=== PATIENT | male | born 1950 | race Caucasian/White ===

== ENCOUNTER 2025-05-28 14:54 | Observation (INO) | payer OTHER, SELFPAY ==
[2025-05-28] VITALS (24 sets, daily range): BP systolic 121–161; BP diastolic 74–106; PULSE 72–102; TEMP 36.6–36.8; O2SAT 89–97; BMI 39.5
--- NOTE | 2025-05-28 15:17 | ECG_ITS ---
The [facility] Test Date: 2025-05-28 Pat Name: SHAKIRA PASCAL Department: Room: - Gender: Male [employer]: : 1950 Requested By: Griffin Macario Order Number: [id number] Dong MD: RENÉ TARIQ M.D. Measurements Intervals [place] Rate: 81 P: 60 CO: 210 QRS: -75 QRSD: 134 T: 66 QT: 408 QTc: 446 Interpretive Statements 1100 Sinus rhythm 2231 First degree AV block 2450 Right bundle branch block 3114 Cannot rule out anterior myocardial infarction, age undetermined 7200 Abnormal left axis deviation 9150 abnormal ECG No previous ECG available for comparison Electronically Signed On 05-28-2025 18:04:07 EDT by RENÉ TARIQ M.D.
--- NOTE | 2025-05-28 15:32 | PC.NURSE ---
pt reports when he puts head down and then lifts head the dizziness increases. states this makes him nauseated.
[2025-05-28 15:46] LABS: Hematocrit 51.5 % (42.0-54.0); Hemoglobin 16.9 g/dL (14.0-18.0); Immature Granulocytes Abs Auto 0.03 10^3/uL (0.00-0.03); Immature Granulocytes Pct Auto 0.3 % (0.0-0.5); Lymphocytes Absolute Auto 1.9 10^3/uL (1.2-3.8); Mean Corpuscular HGB Conc 32.8 g/dL (29.9-35.2); Mean Corpuscular Hemoglobin 30.2 pg (25.9-34.0); Mean Corpuscular Volume 92.1 fL (80.0-94.0); Platelet Count 166 10^3/uL (150-450); Red Blood Count 5.59 10^6/uL (4.70-6.10); White Blood Count 9.0 10^3/uL (4.0-11.0)
--- NOTE | 2025-05-28 15:47 | CT_ITS ---
The [address] [address] Patient Name: SHAKIRA PASCAL MRN: [facility]:[id number] date: 1950 Sex: M Assigned Patient Location: ED.MAIN Current Patient Location: ED.MAIN Accession/Order Number: [id number] Exam Date: 05/28/2025 15:42 Report Date: 05/28/2025 16:06 At the request of: ALETA NORTON Procedure: CT cervical spine wo con CLINICAL DATA: Dizziness and visual changes. Neck and shoulder pain with weakness. CT BRAIN WITHOUT CONTRAST: COMPARISON: None TECHNIQUE: Contiguous axial unenhanced images were obtained through the brain. This CT exam was performed using one or more following dose reduction techniques: Automated exposure control, adjustment of the mA and/or kV according to patient size, or use of iterative reconstruction technique. FINDINGS: There is generalized atrophy. The ventricles are normal in size and position. Minor microvascular changes are noted. There are no additional areas of abnormal attenuation. There is no hemorrhage, mass effect or extra-axial collections. There is suspected empty sella. Bilateral ethmoid mucosal thickening is present. There is also soft tissue density within the nasal passages where polyposis is not excluded. There is slight nasal septal deviation to the left. The mastoid air cells are under developed though appear clear. There is carotid siphon plaque. No orbital asymmetries are noted. CT/CT head/brain wo con IMPRESSION: ATROPHY AND MINOR MICROVASCULAR CHANGES. SINUS DISEASE AND POSSIBLE NASAL POLYPOSIS. NO ACUTE INTRACRANIAL ABNORMALITY. CT CERVICAL SPINE WITHOUT CONTRAST WITH 3D RECONSTRUCTIONS: COMPARISON: None TECHNIQUE: Spiral axial unenhanced images were obtained through the cervical spine. Sagittal, coronal and 3D volume-rendered reconstructions were also reviewed. This CT exam was performed using one or more following dose reduction techniques: Automated exposure control, adjustment of the mA and/or kV according to patient size, or use of iterative reconstruction technique. FINDINGS: There is straightening of the normal cervical lordosis. Alignment is maintained in the sagittal plane. No fractures are identified. There is slight disc space narrowing at C6-7. There is endplate spurring at the lower spine. The atlantoaxial relationship is maintained. No prevertebral soft tissue swelling is seen. There are some shotty cervical lymph nodes. The upper imaged lungs show no contributory findings. IMPRESSION: STRAIGHTENING OF THE NORMAL CERVICAL LORDOSIS. MINOR DEGENERATIVE CHANGES, PREDOMINANTLY DISTALLY. NO ACUTE BONY FINDINGS. Impression dictated by: Debra Moseley M.D. 05/28/2025 4:06 PM Dictation Location: [place] [address] Electronically authenticated by: [id number] Y Date: 05/28/2025 16:06
--- NOTE | 2025-05-28 15:47 | CT_ITS ---
The [address] [address] Patient Name: SHAKIRA PASCAL MRN: [facility]:[id number] date: 1950 Sex: M Assigned Patient Location: ED.MAIN Current Patient Location: ED.MAIN Accession/Order Number: [id number] Exam Date: 05/28/2025 15:42 Report Date: 05/28/2025 16:06 At the request of: ALETA NORTON Procedure: CT cervical spine wo con CLINICAL DATA: Dizziness and visual changes. Neck and shoulder pain with weakness. CT BRAIN WITHOUT CONTRAST: COMPARISON: None TECHNIQUE: Contiguous axial unenhanced images were obtained through the brain. This CT exam was performed using one or more following dose reduction techniques: Automated exposure control, adjustment of the mA and/or kV according to patient size, or use of iterative reconstruction technique. FINDINGS: There is generalized atrophy. The ventricles are normal in size and position. Minor microvascular changes are noted. There are no additional areas of abnormal attenuation. There is no hemorrhage, mass effect or extra-axial collections. There is suspected empty sella. Bilateral ethmoid mucosal thickening is present. There is also soft tissue density within the nasal passages where polyposis is not excluded. There is slight nasal septal deviation to the left. The mastoid air cells are under developed though appear clear. There is carotid siphon plaque. No orbital asymmetries are noted. CT/CT cervical spine wo con IMPRESSION: ATROPHY AND MINOR MICROVASCULAR CHANGES. SINUS DISEASE AND POSSIBLE NASAL POLYPOSIS. NO ACUTE INTRACRANIAL ABNORMALITY. CT CERVICAL SPINE WITHOUT CONTRAST WITH 3D RECONSTRUCTIONS: COMPARISON: None TECHNIQUE: Spiral axial unenhanced images were obtained through the cervical spine. Sagittal, coronal and 3D volume-rendered reconstructions were also reviewed. This CT exam was performed using one or more following dose reduction techniques: Automated exposure control, adjustment of the mA and/or kV according to patient size, or use of iterative reconstruction technique. FINDINGS: There is straightening of the normal cervical lordosis. Alignment is maintained in the sagittal plane. No fractures are identified. There is slight disc space narrowing at C6-7. There is endplate spurring at the lower spine. The atlantoaxial relationship is maintained. No prevertebral soft tissue swelling is seen. There are some shotty cervical lymph nodes. The upper imaged lungs show no contributory findings. IMPRESSION: STRAIGHTENING OF THE NORMAL CERVICAL LORDOSIS. MINOR DEGENERATIVE CHANGES, PREDOMINANTLY DISTALLY. NO ACUTE BONY FINDINGS. Impression dictated by: Debra Moseley M.D. 05/28/2025 4:06 PM Dictation Location: [place] [address] Electronically authenticated by: [id number] Y Date: 05/28/2025 16:06
[2025-05-28 15:49] LABS: Anion Gap 16.8; Blood Urea Nitrogen 35.0 mg/dL (7.0-18.0); Calcium 9.6 mg/dL (8.5-10.1); Carbon Dioxide 25.2 mmol/L (21.0-32.0); Chloride 102 mmol/L (98-107); Estimated GFR (African America 30 (>=60 mL/min/1.73m^2); Estimated GFR (Non-African Ame 25 (>=60 mL/min/1.73m^2); Glucose 159 mg/dL (74-106); Potassium 4.0 mmol/L (3.5-5.1); Sodium 140 mmol/L (136-145)
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
--- NOTE | 2025-05-28 17:23 | US_ITS ---
The [address] [address] Patient Name: SHAKIRA PASCAL MRN: [id number] date: 1950 Sex: M Assigned Patient Location: ED.MAIN Current Patient Location: ED.MAIN Accession/Order Number: [id number] Exam Date: 05/28/2025 18:20 Report Date: 05/28/2025 19:56 At the request of: PHAM FOSTER MD Procedure: US renal BI BILATERAL RENAL AND BLADDER ULTRASOUND CLINICAL HISTORY: SUZANNE COMPARISON: None Estimation of renal size is approximately 10.4 x 5.4 x 6.9 cm on the right and 9.4 x 6.0 x 7.9 cm on the left. Multiple echogenic foci on the right up to 7 x 6 x 7 mm in size superiorly superior pole cyst the right 5.2 cm in size. On the left, there is cortical thinning 5 mm. Evidence of of acute pelvic calyceal dilatation. Multiple stones largest 1.3 x 1.4 x 2.6 cm in size. The urinary bladder is partially distended with a volume of 348 ml. No shadowing stone or focal lesion. US/US renal BI IMPRESSION: BILATERAL renal calculi. Bilateral renal cortical thinning Left-sided pelvicalyceal dilatation Impression dictated by: Moe Boucher M.D. 05/28/2025 7:56 PM Dictation Location: [place] [address] Electronically authenticated by: [id number] Y Date: 05/28/2025 19:56
[2025-05-28 17:49] LABS: Cholesterol 111 mg/dL (<=200); HDL Cholesterol 30 mg/dL (40-60); Triglycerides 177 mg/dL (<=150); VLDL CHOLESTEROL 35.4 mg/dL
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
[2025-05-28] MEDS: ASPIRIN 81 MG TAB.CHEW 324 MG PO (18:45)
[2025-05-28] MEDS: CITRIC ACID/SODIUM CITRATE 30 ML SOLUTION ORACIT SHOHL'S SOLN 5 ML PO (21:17)
[2025-05-28] MEDS: CYCLOBENZAPRINE HCL 10 MG TABLET 5 MG PO (21:18)
[2025-05-28] MEDS: DICLOFENAC SODIUM 1% 100 GM TUBE TOPICAL (21:19)
[2025-05-28] MEDS: TAMSULOSIN HCL 0.4 MG CAPSULE PO (21:23)
[2025-05-29] VITALS (25 sets, daily range): BP systolic 113–122; BP diastolic 57–83; PULSE 83–102; TEMP 36.3–36.7; O2SAT 89–98
--- NOTE | 2025-05-29 | MR_ITS ---
The [address] [address] Patient Name: SHAKIRA PASCAL MRN: [id number] date: 1950 Sex: M Assigned Patient Location: MS Current Patient Location: MS Accession/Order Number: [id number] Exam Date: 05/29/2025 14:00 Report Date: 05/29/2025 15:28 At the request of: PHAM FOSTER MD Procedure: MR angio neck wo con MR angio head wo con, MR angio neck wo con 05/29/2025 2:36 PM SIGN OF SYMPTOMS: ^cva COMPARISON: MRI brain 05/29/2025. FINDINGS: MR ANGIOGRAM NECK: Aortic arch and ostia great vessels not visualized. The proximal common carotid arteries are not visualized. Otherwise the visualized common carotids, carotid bifurcations and cervical ICAs are patent. Ostia and proximal vertebral arteries not visualized. The visualized vertebral arteries are patent throughout their cervical course. Codominant vertebral arteries. MRA BRAIN: Intracranial ICAs are patent. Both carotid termini patent. Anterior cerebral arteries and middle cerebral arteries are patent. Intradural vertebral arteries, basilar artery, basilar tip and basilar bifurcation patent. Posterior cerebral arteries are patent. Posterior communicating arteries are patent. No aneurysm. MR/MR angio neck wo con IMPRESSION: Aortic arch, great vessels and proximal vertebral arteries and common carotid arteries excluded from [id number]. Negative for large vessel occlusion or hemodynamically significant stenosis involving the head and neck arterial vasculature as visualized. Impression dictated by: Moe Boucher M.D. 05/29/2025 3:28 PM Dictation Location: [place] [address] Electronically authenticated by: [id number] Y Date: 05/29/2025 15:28
--- NOTE | 2025-05-29 | MR_ITS ---
The [address] [address] Patient Name: SHAKIRA PASCAL MRN: [id number] date: 1950 Sex: M Assigned Patient Location: MS Current Patient Location: MS Accession/Order Number: [id number] Exam Date: 05/29/2025 14:00 Report Date: 05/29/2025 15:28 At the request of: PHAM FOSTER MD Procedure: MR angio neck wo con MR angio head wo con, MR angio neck wo con 05/29/2025 2:36 PM SIGN OF SYMPTOMS: ^cva COMPARISON: MRI brain 05/29/2025. FINDINGS: MR ANGIOGRAM NECK: Aortic arch and ostia great vessels not visualized. The proximal common carotid arteries are not visualized. Otherwise the visualized common carotids, carotid bifurcations and cervical ICAs are patent. Ostia and proximal vertebral arteries not visualized. The visualized vertebral arteries are patent throughout their cervical course. Codominant vertebral arteries. MRA BRAIN: Intracranial ICAs are patent. Both carotid termini patent. Anterior cerebral arteries and middle cerebral arteries are patent. Intradural vertebral arteries, basilar artery, basilar tip and basilar bifurcation patent. Posterior cerebral arteries are patent. Posterior communicating arteries are patent. No aneurysm. MR/MR angio head wo con IMPRESSION: Aortic arch, great vessels and proximal vertebral arteries and common carotid arteries excluded from [id number]. Negative for large vessel occlusion or hemodynamically significant stenosis involving the head and neck arterial vasculature as visualized. Impression dictated by: Moe Boucher M.D. 05/29/2025 3:28 PM Dictation Location: [place] [address] Electronically authenticated by: [id number] Y Date: 05/29/2025 15:28
--- NOTE | 2025-05-29 | MR_ITS ---
[address] [address] Patient Name: SHAKIRA PASCAL MRN: [id number] date: 1950 Sex: M Assigned Patient Location: MS Current Patient Location: MS Accession/Order Number: [id number] Exam Date: 05/29/2025 14:00 Report Date: 05/29/2025 15:09 At the request of: PHAM FOSTER MD Procedure: MR head/brain wo con EXAMINATION: MRI OF THE BRAIN WITHOUT CONTRAST CLINICAL HISTORY: CVA COMPARISON: None TECHNIQUE: Multiecho, multiplanar imaging of the brain was performed without contrast FINDINGS: No restricted diffusion to suggest acute territorial infarct. Ventricles and sulci grossly unremarkable in size and configuration for the patient's age. Mild burden of periventricular, subcortical and pontine T2 prolongation identified suggest of chronic small vessel ischemic disease. No shift of midline structure. Basal cisterns are patent. Major intracranial arterial vascular flow voids are preserved. Mild ethmoid sinus mucosal thickening. IMPRESSION: Mild chronic small vessel ischemic disease. Negative for acute intracranial process by MRI. Impression dictated by: Moe Boucher M.D. 05/29/2025 3:09 PM Dictation Location: [place] [address] Electronically authenticated by: [id number] Y Date: 05/29/2025 15:09
[2025-05-29] MEDS: PANTOPRAZOLE SODIUM 40 MG TABLET.DR PO (06:39)
[2025-05-29] MEDS: DICLOFENAC SODIUM 1% 100 GM TUBE TOPICAL ×2 (06:39→18:14)
--- NOTE | 2025-05-29 08:52 | PC.NURSE ---
nurse entered room to review morning meds. pt refused insulins at this time until i get what i want to eat. nurse attempted to explain to pt he is on a 2000 ada diet, pt stated downstairs they told me i could eat what i want. pt stated 'i get mean about my diabetes and if i don't get what i want, i will leave. plate of food in pts room, stated he refuses to eat until he gets everything he orders including double sausage. will hold meds until pt discusses above issues with physician.
--- NOTE | 2025-05-29 09:43 | MR_ITS ---
The [address] [address] Patient Name: SHAKIRA PASCAL MRN: [id number] date: 1950 Sex: M Assigned Patient Location: MS Current Patient Location: MS Accession/Order Number: [id number] Exam Date: 05/29/2025 14:00 Report Date: 05/29/2025 16:13 At the request of: PHAM FOSTER MD Procedure: MR cervical spine wo con EXAMINATION: MRI OF THE CERVICAL SPINE WITHOUT CONTRAST CLINICAL DATA: Acute dizziness with recent falls. Neck pain and paresthesias. COMPARISON: CT 05/28/2025 TECHNIQUE: Multiecho imaging was performed in the sagittal and axial plane without contrast administration. FINDINGS: There is some motion artifact. Alignment is maintained on the sagittal images. There is normal signal intensity within the imaged bone marrow. No edema or acute compression fractures are noted. There is a normal cervicomedullary junction. Within limits of the motion, the cord is normal in caliber and no obvious signal abnormalities are seen At C2-3, there is disc disease or stenosis is identified. At C3-4, there is minor asymmetric disco-osteophytic bulging in the right parasagittal region with subtle thecal sac effacement. There is also minimal right foraminal encroachment. At C4-5, there is mild disco-osteophytic bulging with mild thecal sac effacement however no cord impingement. The neural foramen are patent. At C5-6, there is no significant disc bulge or herniation. No central or foraminal stenosis is noted. At C6-7, there is mild narrowing of the disc space. There is disco-osteophytic bulging with mild thecal sac effacement. There is no cord contact or compression. There is mild bilateral foraminal encroachment. At the cervicothoracic junction, there is no significant disc disease or stenosis. MR/MR cervical spine wo con IMPRESSION: NO ACUTE COMPRESSION FRACTURES. MILD DISCOVERTEBRAL DEGENERATIVE CHANGES, GREATEST AT C6-7, WITHOUT PROMINENT ASSOCIATED STENOSIS. Impression dictated by: Debra Moseley M.D. 05/29/2025 4:13 PM Dictation Location: [place] [address] Electronically authenticated by: [id number] Y Date: 05/29/2025 16:13
[2025-05-29] MEDS: CITRIC ACID/SODIUM CITRATE 30 ML SOLUTION ORACIT SHOHL'S SOLN 5 ML PO ×2 (10:04→15:43)
[2025-05-29] MEDS: INSULIN ASPART 300 UNIT/3 ML PEN 10 UNIT SUBQ ×2 (10:08→13:34)
[2025-05-29] MEDS: INSULIN GLARGINE 300 UNIT/3 ML INSULN.PEN 40 UNIT SQ ×2 (10:08→18:31)
[2025-05-29] MEDS: HEPARIN SODIUM (PORCINE) 5,000 UNIT/ML VIAL 5000 UNIT SUBQ (10:10)
[2025-05-29 10:32] LABS: Hematocrit 52.0 % (42.0-54.0); Hemoglobin 17.0 g/dL (14.0-18.0); Immature Granulocytes Abs Auto 0.03 10^3/uL (0.00-0.03); Immature Granulocytes Pct Auto 0.4 % (0.0-0.5); Lymphocytes Absolute Auto 2.2 10^3/uL (1.2-3.8); Mean Corpuscular HGB Conc 32.7 g/dL (29.9-35.2); Mean Corpuscular Hemoglobin 30.3 pg (25.9-34.0); Mean Corpuscular Volume 92.7 fL (80.0-94.0); Platelet Count 167 10^3/uL (150-450); Red Blood Count 5.61 10^6/uL (4.70-6.10); White Blood Count 8.3 10^3/uL (4.0-11.0)
--- NOTE | 2025-05-29 10:40 | CM.NOTE ---
Rounds made with Dr. Huber, discussed with pt lab work and CT findings. Pt awaiting continued testing, MRI, echo, and teleneuro consult. Plan of care discussed with pt and family.
--- NOTE | 2025-05-29 10:40 | SWNOTE1 ---
DEVON met with pt, pt's , and pt's son in the room. Pt is sitting up in chair eating breakfast. [facility] ask about the [facility]. Pt voiced his already called it in and he would like his stay billed under [facility]. SW to let case management know. Pt lives at home with . He does have a rollator, but the [facility] does not know he has one. He voiced it is kind of falling apart. He is going to talk to the [facility] about it at his next visit. He stated he does not use it much, usually only when he walks far distances. He does have a home bipap/cpap machine and he does use it, he brought it to hospital. DEVON did ask pt about any therapy services coming in to the home? Pt stated not at this time. DEVON asked if he went to any outpt therapy? Not at this time. DEVON asked if he would be interested in outpt or home health therapy? Pt is unsure and would like to see what he has going on medically and will determine from there. SW to [place] back to pt.
[2025-05-29 10:49] LABS: Alanine Aminotransferase 24 U/L (16-63); Albumin Globulin Ratio 0.8; Albumin Level 3.9 g/dL (3.4-5.0); Alkaline Phosphatase 126 U/L (46-116); Anion Gap 14.9; Aspartate Amino Transferase 21 U/L (15-37); Blood Urea Nitrogen 42.0 mg/dL (7.0-18.0); Calcium 9.8 mg/dL (8.5-10.1); Carbon Dioxide 27.6 mmol/L (21.0-32.0); Chloride 104 mmol/L (98-107); Estimated GFR (African America 29 (>=60 mL/min/1.73m^2); Estimated GFR (Non-African Ame 23 (>=60 mL/min/1.73m^2); Globulin 4.9 g/dL; Glucose 154 mg/dL (74-106); Magnesium 2.0 mg/dL (1.8-2.4); Potassium 4.5 mmol/L (3.5-5.1); Sodium 142 mmol/L (136-145); Total Protein 8.8 g/dL (6.4-8.2)
--- NOTE | 2025-05-29 13:19 | CM.NOTE ---
Called MRI for time on scan, about [address] Huber
--- NOTE | 2025-05-29 13:30 | SWNOTE1 ---
SW notified Case Management of pt wanting his stay to be under the [facility].
--- NOTE | 2025-05-29 13:31 | SWNOTE1 ---
Important Message from Medicare reviewed and discussed with patient's daughter, Aletha. Pt also listening during conversation. Pt's daughter and patient verbalized understanding and pt had daughter sign the form. Original given to patient's daughter and copy placed in patient?s chart.
--- NOTE | 2025-05-29 15:46 | CM.NOTE ---
Updated Dr. Murphy about MRI and MRA results.
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
[2025-05-29] MEDS: 0.9 % SODIUM CHLORIDE 1,000 ML 100 ML IV (17:13)
--- NOTE | 2025-05-29 17:22 | CA_ITS ---
Patient Name: SHAKIRA PASCAL MR#: [id number] : 1950 Exam Date: 05/29/2025 Ordering Doctor: PHAM FOSTER ECHOCARDIOGRAM REPORT PROCEDURE: CA ECHO DOPPLER COMPLETE INDICATIONS: CVA COMPARISON: None. DESCRIPTION: COMPLETE ECHOCARDIOGRAM Real-time transthoracic echocardiography with 2D, M-mode, spectral and color flow Doppler performed. QUALITY: Technical quality was limited due to suboptimal positioning. LEFT VENTRICLE: Normal chamber size. Moderate concentric left ventricular hypertrophy. LV EF: Global left ventricular systolic function is normal. Visual estimation of left ventricular ejection fraction is 60-65%. No wall motion abnormalities. DIASTOLIC: Unable to access diastolic function due to E-A conversion. ATRIAL SEPTUM: Suboptimal agitated saline contrast does not reveal an intra-cardiac shunt. LEFT ATRIUM: Normal chamber size. RIGHT ATRIUM: Mild dilatation. RIGHT VENTRICLE: Upper normal limits in size. Normal right ventricular systolic function. TRICUSPID VALVE: Normal mobility and thickness. No stenosis with trivial regurgitation. No evidence of pulmonary hypertension. RVSP 17mmHg. MITRAL VALVE: Normal mobility and thickness. No evidence of mitral valve stenosis. There is no mitral annular calcification. No mitral regurgitation. AORTIC VALVE: Grossly normal. No evidence of aortic valve stenosis. No aortic regurgitation. AORTIC ROOT: Normal diameter and appearance. Measuring 3.7cm. PULMONIC VALVE: Not well visualized. PERICARDIUM: There is a small anterior and trivial posterior pericardial effusion. IVC: Collapses with inspiration. Mild dilation measuring 2.2cm. CONCLUSION: 1. Global left ventricular systolic function is normal; visually estimated ejection fraction is 60 to 65% 2. Moderate left ventricle hypertrophy 3. The right ventricle is upper normal limits in size with normal systolic function 4. The right atrium is mildly enlarged 5. No significant valvular abnormalities 6. Small anterior, trivial posterior pericardial effusion 7. Suboptimal agitated saline contrast shows no evidence of intracardiac shunt Adult Echocardiography Procedure Report Left Ventricle LVEDD (3.7 - 5.6 cm): 4.27 cm LVESD (2.2 - 4.0 cm): 2.88 cm LVIVS thickness (0.6 - 1.2 cm): 1.52 cm LVPW thickness (0.5 - 1.0 cm): 1.54 cm e': 0.08 m/s LVOT Max Gradient: 0.79 mm[Hg] LVOT Area (cm2): 0.44 m/s Peak Velocity (LVOT): 0.44 m/s Mean Velocity (LVOT): 0.25 m/s LVOT Diameter 2.48 cm Left Atrium LA Volume Index (2D A2C): 30.32 ml/m2 Left Atrium Systolic Dimension: 4.38 cm Mitral Valve Right Ventricle RV Internal Diastolic Dimension: 4.11 cm Aorta AO Root Diam: 3.69 cm Aortic Valve AoV Area (Peak Jermaine): 2.11 cm2, 2.11 cm2 AoV Area (VTI): 1.52 cm2, 1.52 cm2 Peak Velocity(Antegrade Flow): 1.02 m/s Peak Gradient(Antegrade Flow): 4.13 mm[Hg] Mean Velocity(Antegrade Flow): 0.70 m/s Mean Gradient(Antegrade Flow): 2.22 mm[Hg] Velocity Time Integral: 14.64 cm Tricuspid Valve Peak Velocity (Regurgitant Flow): 1.50 m/s Pulmonic Valve Right Atrium Right Atrium Systolic Pressure: 93.85 ml, 93.85 ml Dictated by: Lai Peterson M.D. on 05/29/2025 at 12:18 Approved by: Lai Peterson M.D. on 05/29/2025 at 12:28
--- NOTE | 2025-05-29 17:22 | P.PN_ITS ---
Progress Note: Subjective Subjective Interval history: Pt seen and examined at bedside. Saw him couple times today, he was with his , son, and daughter in the room. He still has giterry movements in his hands with numbness along with some instability in his gait. He feels better he tells me, he denies any fecal incontinence or urinary retention. Denies any chest pain, SOB, GIRON, or nausea today. His labs showing some worsening in his renal function, with creatinine of 2.68. I was closely following up with pt and his family members along with the neurointerventionalist at [facility]. Exam Narrative Exam Narrative: General: Obese, very emotional on my encounter. Not in acute distress, not in pain as yesterday. He is less anxious and emotional today Skin: Warm, dry, no pallor noted. No rash. Head: Normocephalic, atraumatic. Neck: Tenderness is less than yesterday. No restricted range of motion. Supple, no lymphadenopathy, no thyroid Eye: Pupils are equal, round and EOMI. No scleral icterus. No nystagmus on exam Ears, Nose, Mouth, and Throat: TM are clear, no posterior oropharynx erythema or nasal mucosal hypertrophy, uvula is mid-line Oral mucosa is moist Cardiovascular: Regular Rate and Rhythm without murmur, gallop or rub. Respiratory: No accessory muscle use or respiratory distress. Lungs are clear to auscultation, no wheezing, rales or rhonchi Musculoskeletal: normal ROM, no calf or popliteal tenderness, no lower extremity edema/swelling GI: Abdomen is soft, non-distended. Normal bowel sounds. No tenderness to palpation. No rebound, guarding, or rigidity noted. Neurological: A&O x4. No cranial nerve dysfunction observed, pt has no focal motor or sensory deficits. Moves all extremities. Sensation intact. Constitutional Vital Signs, click to edit/add: Last Vital Signs Temp 97.5 F L 05/29/25 15:52 Pulse 94 H 05/29/25 15:55 Resp 20 05/29/25 15:52 BP 116/66 05/29/25 15:52 Pulse Ox 92 L 05/29/25 15:52 O2 Del Method Room Air 05/29/25 15:52 Progress Note: Objective Labs Labs: Short CBC 05/29/25 Range/Units 10: WBC 8.3 (4.0-11.0) 10^3/uL Hgb 17.0 (14.0-18.0) g/dL Hct 52.0 (42.0-54.0) % Plt Count 167 (150-450) 10^3/uL BMP 05/29/25 10:21 Sodium 142 Potassium 4.5 Chloride 104 Carbon Dioxide 27.6 BUN 42.0 H Creatinine 2.68 H Glucose 154 H Calcium 9.8 Liver Function 05/29/25 Range/Units 10:21 Total Bilirubin 0.7 (0.2-1.0) mg/dL AST 21 (15-37) U/L ALT 24 (16-63) U/L Alkaline Phosphatase 126 H (46-116) U/L Albumin 3.9 (3.4-5.0) g/dL Progress Note: A&P Assessment and Plan (1) Neck pain: (2) Ataxia: (3) Change in vision: Plan Ruling out Posterior circulation CVA Vertebral artery dissection is less likely -I ran the case by [facility] neurointerventionalist, with imaging and clinical exam, he does not think patient has any intracranial dissection or vertebral dissection. He recommends aspirin and statin which were ready gave the patient - Also recommends MRA brain and neck which we ordered for tomorrow, and MR brain without contrast. New intervention was do not see any emergency urgency to have the imaging done tonight or today and patient can be kept here for observation until he gets the studies tomorrow - Aspirin 81 mg p.o. daily - Atorvastatin 40 mg nightly -Consult Teleneurology - I held hydrochlorothiazide given the patient's CKD -Starting labetalol 5 mg every 8 hour as needed for SBP more than 160 - Obtain echo - Obtain carotid ultrasound - PT/OT - Neurocheck every 2-3 hours - Vital signs check every 3 to 4 hours -I will use voltaren gel and flexeril instead of baclofen for the pain. Trying to refrain from using opioids given his presumable allergy -Give Lorazepam 0.25 mg q8hrs prn for anxiety - DNR CCA without intubation, I discussed that with the patient at bedside and in the presence of his . I will respect his wishes and put that in the chart -Discussed the plan with the pt and his at bedside, answered all their q uestions -Pt to use his home CPAP his is bringing from home in a few - DVT prophylax with HSQ - I reconciled patient's medications 05/29/2025 posterior circulation CVA was ruled out. I discussed with neurology team at [facility] at the patient's MRI of the cervical spine, MRI brain without contrast, MRA head and neck without contrast as well. Also discussed with him the echo that showed normal aortic root. Dr. Sy, the neurointerventional on- call recommended CT angio to rule out any possible early aortic dissection. She stated that this is not on top of her list however she would want to rule this out as well. I explained to her that TTE findings as well as the patient symptomatology as well as vital signs. Also she stated that she would like to have the patient come in to [facility] for inpatient in person neurologic testing. She had an accepting neurology team Dr. Aga Haji to be the accepting staff there. I spoke to Jason in the presence of his daughter and he states that [facility] which [facility] and he gave me the thumbs up to be transferred. We already called and they told us that there would be a bed the next 12 to 24 hours. Now when it came to the CT angio of the chest, I explained to him the reasoning behind neurointerventional requesting this imaging study. I explained to him that aortic dissection is, if by any chance is there, is a deadly emergent situation that may cause him almost eminent. And also he asked me about the risk of injuring his kidneys given that he has chronic kidney disease and he will be exposed to contrast. I explained to him that this is not uncommon to have SUZANNE from contrast at this nephropathy. However this is not guaranteed. I explained to him that there are always risks versus benefits. Risks would be BRENDAN from contrast exposure. That may end up in hemodialysis given his CKD, this is always a risk. Benefits would be ruling out aortic dissection which is a deadly emergency as I mentioned above. Patient states that he would not want any surgery even if aortic dissection was there. His daughter and were both in the room and they agreed with him that he would not want any surgery and confirm that to me. He stated that he will take his risk and wait until his transfer to primary care. I explained to him that the risk of decompensation and from aortic dissection that could be rapid is always there regardless of the rank of aortic dissection on the list of the differential diagnosis as discussed with neurointerventional. I explained to him that he can always change his mind and we are always here to help him. I explained to him that I respect his wishes and I will be his best advocate. I answered all the patient's family questions I spent more than 90 minutes talking to the family members and trying to guide him through the plan of management as well as answer all their questions. They were very appreciative of my efforts. I will continue to follow him tonight and will be available for him for any question or concern. Shared decision making was accomplished here. Again I will respect my patient's wishes and I am always available for him if he changes his mind.
[2025-05-29] MEDS: INSULIN ASPART 300 UNIT/3 ML PEN 15 UNIT SUBQ (18:15)
[2025-05-29] MEDS: ACETAMINOPHEN 325 MG TABLET 650 MG PO (20:03)
== END 2025-05-29 21:50 | disposition short-term general hospital (02) ==
LOC: ER 17:39 → MS 19:59
PROVIDERS: Admitting Provider Student in an Organized Health Care Education/Training Program; Emergency Provider Emergency Medicine; Visit Provider Student in an Organized Health Care Education/Training Program
DX: M54.2 Cervicalgia (principal); R27.0 Ataxia, unspecified; H53.8 Other visual disturbances; Z66 Do not resuscitate; E11.22 Type 2 diabetes mellitus with diabetic chronic kidney disease; N18.9 Chronic kidney disease, unspecified; I12.9 Hypertensive chronic kidney disease with stage 1 through stage 4 chronic kidney disease, or unspecified chronic kidney disease; E66.9 Obesity, unspecified; E78.5 Hyperlipidemia, unspecified; G47.33 Obstructive sleep apnea (adult) (pediatric); Z79.4 Long term (current) use of insulin; Z79.85 Long-term (current) use of injectable non-insulin antidiabetic drugs; M54.50 Low back pain, unspecified; G89.29 Other chronic pain; Z68.39 Body mass index [BMI] 39.0-39.9, adult
CPT/HCPCS: 36415; 70450; 70544; 70547; 70551; 72125; 72141; 76376; 76775; 80048; 80053; 80061; 82948; 83036; 83735; 84300; 85025; 93005; 93306; 93880; 96372; 97162; 97165; 97535; 99285; G0378; J1644